=== PATIENT | female | born 1950 | race Caucasian/White ===

== ENCOUNTER 2022-06-18 10:29 | Outpatient (RCR) | payer OTHER, SELFPAY ==
--- NOTE | 2022-06-18 11:46 | PT.OPEX ---
[facility] PT [facility] Eval Start: 06/18/22 09:18 Freq: Status: Active Protocol: Document 06/18/22 11:10 DHIRAJ (Rec: 06/18/22 11:42 DHIRAJ [email or web address]) E-signed By Farhad Triplett PT Physical Therapy Outpatient Evaluation Insurance Information Insurance Name Medicare B Medical Diagnosis Left knee OA Treating Diagnosis Left knee pain Referring MD Gutierres Subjective Subjective Pt. reports having left knee progressive OA which has gotten worse this past year with injections only helping very short term. She is scheduled for a TKA on 06/25/22. She had a right TKA in 2010 which went well. She lives with her in a split level home with 6-8 steps going down to bedroom/bathroom and 6-8 steps up to kitchen. There are handrails on steps. She has a walk in shower with grab bars and a toilet frame for easier transfers. She has a walker and a cane as well. Her will be able to help her as needed upon return home from hospital. PMH includes right TKA, HTN, LBP, and OA. She currently doesn't use an assistive device for ambulation. Pain Comments 11/30 Date of Surgery (If applicable) 06/25/22 Current Work Status Retired Preferred Name Lizeth Objective Range of Motion Left knee: 10-110 degrees Strength Left quad: 4/5 Swelling mild/moderate left knee Balance & Gait Pt. ambulates without assistive device with moderate limp on left due to pain and limited knee ROM. Assessment Assessment/Impression Objectively, pt. demonstrates: 10-110 degrees of left knee ROM with flexion contracture noted; ambulation without device with moderate limp on left; 4/5 left quad strength; good ankle ROM; and functional bilat. UE AROM and strength. Primary Functional Limitations walking, transfers, squatting Plan of Care Rehabilitation Potential Excellent Physical Therapy Goals 1. Pt. will be indep. with HEP for self maintenance in 10 weeks. 2. Pt. will be able to walk with minimal limp without assistive device in 10 weeks. 3. Pt. will demonstrate improved quad and core strength to functional level in 10 weeks. 4. Pt. will demonstrate functional knee AROM 0-120 to allow regular ADL's in 10 weeks. Coordination/Communication With Referral Source Treatment Plan/Direct Interventions Gait Training,Joint Mobilization,Manual Therapy, Neuromuscular Re-ed,Self-Care/ Home Management,Therapeutic Activities,Therapeutic Exercises Frequency/Duration Re-eval after surgery and see 2 times a week for 6-8 weeks. Patient Will Be Discharged From Therapy Independent w/HEP, Independently Progressing Evaluation Billing Complexity Low Certification Information Initial Certification Date 06/18/22 Ending Certification Date 09/10/22 Provider Signature Shows Agreement With POC & Medical Necessity Physician Signature & Date Requested Please Sign/Date Here Physician Comment/Change : Physician NPI Number #
== END 2022-07-26 14:30 | disposition home or self-care (01) ==
PROVIDERS: PCP Family Medicine; Visit Provider Orthopaedic Surgery
DX: M17.12 Unilateral primary osteoarthritis, left knee (principal); Z51.89 Encounter for other specified aftercare
CPT/HCPCS: 97110; 97161